=== PATIENT | female | born 1965 | race American Indian/Alaskan Native ===

== ENCOUNTER 2018-10-19 19:52 | Emergency (ER) | payer MEDICARE ==
--- NOTE | 2018-10-19 21:56 | Emergency Department Report ---
ED Abdominal Pain HPI - General Chief Complaint: Abdominal Pain Stated Complaint: LEFT SIDE PAIN Time Seen by Provider: 10/19/18 21:48 Source: patient, family Mode of arrival: Ambulatory Limitations: No Limitations - History of Present Illness Initial Comments: 53-year-old -[place] female presents to the emergency room for left flank pain 5 days. Patient denies any nausea vomiting. She does report a past medical history of diabetes hypertension and schizophrenia. Patient reports that she takes Norvasc and lisinopril for hypertension currently on metformin for diabetes A she is to zap proximal and Benadryl for schizophrenia. Patient denies any history of any kidney disease. MD Complaint: flank pain (left) -: days(s) (5) Location: L flank Severity scale (0 -10): 8 - Related Data Previous Rx's Medication Instructions Recorded Last Taken Type Ibuprofen [Motrin 800 MG tab] 800 mg PO Q8HR PRN #21 tablet 10/20/18 Unknown Rx Allergies Allergy/AdvReac Type Severity Reaction Status Date / Time No Known Allergies Allergy Unverified 10/19/18 20:51 ED Review of Systems ROS: Stated complaint: LEFT SIDE PAIN Other details as noted in HPI ED Past Medical Hx - Past Medical History Previous Medical History?: Yes Hx Hypertension: Yes Hx Diabetes: Yes Hx Psychiatric Treatment: Yes (Schizophrenia) - Surgical History Hx Cholecystectomy: Yes Additional Surgical History: C-sections X2, Right wrist - Social History Smoking Status: Never Smoker Substance Use Type: None - Medications Home Medications: Home Medications Medication Instructions Recorded Confirmed Last Taken Type Ibuprofen [Motrin 800 MG tab] 800 mg PO Q8HR PRN #21 tablet 10/20/18 Unknown Rx ED Physical Exam - General Limitations: No Limitations General appearance: alert, in no apparent distress - Head Head exam: Present: atraumatic, normocephalic - Eye Eye exam: Present: EOMI - ENT ENT exam: Present: mucous membranes moist - Respiratory Respiratory exam: Present: normal lung sounds bilaterally. Absent: respiratory distress - Cardiovascular Cardiovascular Exam: Present: regular rate, normal rhythm. Absent: systolic murmur, diastolic murmur, rubs, gallop - GI/Abdominal GI/Abdominal exam: Present: soft. Absent: distended, tenderness, guarding, rebound - Extremities Exam Extremities exam: Present: normal inspection, full ROM. Absent: tenderness - Back Exam Back exam: Present: CVA tenderness (L) - Neurological Exam Neurological exam: Present: alert, oriented X3 - Psychiatric Psychiatric exam: Present: normal affect, normal mood - Skin Skin exam: Present: warm, dry, intact, normal color. Absent: rash ED Course Vital Signs 10/19/18 10/19/18 20:11 20:49 Temperature 98.9 F 98.9 F Pulse Rate 77 78 Respiratory 18 18 Rate Blood Pressure 128/84 128/84 O2 Sat by Pulse 97 97 Oximetry ED Medical Decision Making - Lab Data Result diagrams: 10/19/18 22:20 10/19/18 22:20 - Radiology Data Radiology results: report reviewed Patient: CHIOMA CURRAN MR#: [id number] [birth year] : 1965 Acct:[id number] Age/Sex: 53 / F ADM Date: 10/19/18 Loc: ED Attending Dr: Ordering Physician: TISHA TINAJERO Date of Service: 10/20/18 Procedure(s): CT abdomen pelvis wo con Accession Number(s): [id number] cc: TISHA TINAJERO PROCEDURE: CT ABDOMEN PELVIS WO CON TECHNIQUE: Routine axial imaging was obtained of the abdomen and pelvis without oral or IV contrast. Sagittal and coronal reconstructions were reviewed. HISTORY: left flank pain COMPARISONS: None FINDINGS: Images through the lung bases reveal pleural probable scarring bilaterally. The liver is normal in size and reveals a 4.8 cm cyst in the periportal area. The gallbladder has been removed. The biliary tree is not dilated. The pancreas, spleen and adrenal glands appear normal. The kidneys show no evidence of stones or hydronephrosis. The abdominal aorta is normal in caliber. The bowel loops are normal in caliber course. The appendix is not seen with certainty. In the pelvis the uterus and bladder appear normal. There are multiple flavus along the floor the pelvis along with calcifications in the left ovarian vein. The skeletal structures reveal moderate lytic changes in the lower lumbar spine. IMPRESSION: Cholecystectomy. No acute process in the abdomen and pelvis. No evidence of renal stones or hydronephrosis. 4.8 cm cystic structure in the periportal area of the liver. This may represent a benign cyst.. Right upper quadrant sonography is recommended for confirmation.. This document is electronically signed by Marci Rainey MD., October 20 2018 02:56:16 AM ET Transcribed By: RB Dictated By: MARCI RAINEY MD Electronically Authenticated By: MARCI RAINEY MD Signed Date/Time: 10/20/18257 DD/ 9 TD/TT: 10/20/18251 - Medical Decision Making Assessment evaluated with this provider. Urinalysis CBCs, CMP and CT without contrast of abdomen and pelvis. Critical care attestation.: If time is entered above; I have spent that time in minutes in the direct care of this critically ill patient, excluding procedure time. ED Disposition Clinical Impression: Acute left flank pain Abdominal pain Qualifiers: Abdominal location: lower abdomen, unspecified Qualified Code(s): R10.30 - Lowe r abdominal pain, unspecified Disposition: - TO HOME OR SELFCARE Is pt being admited?: No Does the pt Need Aspirin: No Condition: Stable Instructions: Abdominal Pain (ED) Additional Instructions: Take pain medication as needed. Very importantly to follow-up to primary care provider or [facility] provider. Prescriptions: Ibuprofen [Motrin 800 MG tab] 800 mg PO Q8HR PRN #21 tablet PRN Reason: Pain , Severe (7-10) Referrals: COREY MCCONNELL MD [Primary Care Provider] - 3-5 Days
[2018-10-19 22:10] LABS: Bilirubin,Urine NEG (Negative); Blood,Urine NEG (Negative); Color,Urine Yellow (Yellow); Mucus,Urine FEW /HPF; Protein,Urine <15 mg/dL mg/dL (Negative); Urobilinogen,Urine < 2.0 mg/dL (<2.0)
[2018-10-19 22:58] LABS: Hematocrit 35.6 % (30.3-42.9); Hemoglobin 12.2 gm/dl (10.1-14.3); Mean Corpuscular HGB Conc 34 % (30-34); Mean Corpuscular Volume 81 fl (79-97); Platelet Count 277 K/mm3 (140-440); Red Blood Count 4.37 M/mm3 (3.65-5.03); Red Cell Distribution Width 14.9 % (13.2-15.2)
[2018-10-19 23:09] LABS: Alanine Aminotransferase 6 units/L (7-56); Albumin 3.7 g/dL (3.9-5); BUN/Creatinine Ratio 13; Blood Urea Nitrogen 13 mg/dL (7-17); Calcium 9.7 mg/dL (8.4-10.2); Hemolysis Index 6
[2018-10-20] MEDS ORDERED: IBUPROFEN PO ONE (00:10)
--- NOTE | 2018-10-20 02:58 | Cat Scan Report ---
PROCEDURE: CT ABDOMEN PELVIS WO CON TECHNIQUE: Routine axial imaging was obtained of the abdomen and pelvis without oral or IV contrast. Sagittal and coronal reconstructions were reviewed. HISTORY: left flank pain COMPARISONS: None FINDINGS: Images through the lung bases reveal pleural probable scarring bilaterally. The liver is normal in size and reveals a 4.8 cm cyst in the periportal area. The gallbladder has bee n removed. The biliary tree is not dilated. The pancreas, spleen and adrenal glands appear normal. Th e kidneys show no evidence of stones or hydronephrosis. The abdominal aorta is normal in caliber. The bowel loops are normal in caliber course. The appendix is not seen with certainty. In the pelvis the uterus and bladder appear normal. There are multiple flavus along the floor the pelvis along with ca lcifications in the left ovarian vein. The skeletal structures reveal moderate lytic changes in the l ower lumbar spine. IMPRESSION: Cholecystectomy. No acute process in the abdomen and pelvis. No evidence of renal stones or hydronephrosis. 4.8 cm cystic structure in the periportal area of the liver. This may represent a benign cyst.. Right upper quadrant sonography is recommended for confirmation.. This document is electronically signed by Modesto Rainey MD., October 20 2018 02:56:16 AM ET
[2018-10-20 04:34] VITALS: BP 152/77
== END 2018-10-20 04:00 | disposition home or self-care (01) ==
LOC: ED 19:52
DX: R10.30 Lower abdominal pain, unspecified (principal); I10 Essential (primary) hypertension; E11.9 Type 2 diabetes mellitus without complications; R20.9 Unspecified disturbances of skin sensation
CPT/HCPCS: 36415; 74176; 80053; 81001; 85027

== ENCOUNTER 2022-03-11 17:56 | Emergency (ER) | payer MEDICARE ==
[2022-03-11 18:12] VITALS: BP 157/73
[2022-03-11 20:01] LABS: Bacteria,Urine 1+ /HPF (Negative); Color,Urine Straw (Yellow)
[2022-03-11 20:11] LABS: HCG Qualitative,Urine Negative (Negative)
== END 2022-03-11 20:00 | disposition left against medical advice (07) ==
LOC: ED 17:56
DX: R10.31 Right lower quadrant pain (principal); Z53.21 Procedure and treatment not carried out due to patient leaving prior to being seen by health care provider
CPT/HCPCS: 81001; 81025